=== PATIENT | male | born 1985 | race Caucasian/White ===

== ENCOUNTER 2024-11-15 13:28 | Emergency (ER) | payer SELFPAY ==
[~2024-11-15] VITALS: Ht 172.7 cm; Wt 82.0 kg
[2024-11-15] MEDS ORDERED: SODIUM CHLORIDE 0.9% 1,000 ML IV ONE ×3 (13:45→15:15)
--- NOTE | 2024-11-15 13:45 | ED.PDOC ---
History of Present Illness(SKN HPI Comments 39 y.o male presents to the ED for an evaluation of a possible insect bite x 1 week ago to the left nipple. Patient developed swelling with erythema and states it is painful on palpation. Patient is unsure what bit him, states he did not find anything when he noticed the wound appear. He denies any fever, chills, bleeding or drainage from site. He also denies medical history or allergies,. Time Seen by MD: 13:40 Primary Care Provider: NONE History of Present Illness: Nurses Notes, Medications, Allergies Allergies: Coded Allergies: NO KNOWN ALLERGIES (Unverified , 01/04/12) Home Meds No Active Prescriptions or Reported Meds Information Source: Patient Mode of Arrival: Ambulatory Severity: Moderate Timing: Weeks (1) Duration: Since onset Location: Trunk Mechanism: Insect Wound Type: Abscess Tetanus: Unknown Associated Signs and Symptoms: Redness, Swelling, Pain Past Medical History PAST MEDICAL HISTORY: Denies Surgical History: Denies all surgeries Family History Family History: Unknown Social History Smoker: Cigarettes Alcohol: Occasionally Drugs: Marijuana Lives In: Home Constitutional: denies: chills, diaphoresis, fatigue, fever, malaise, sweats, w eakness, others EENTM: denies: blurred vision, double vision, ear bleeding, ear discharge, ear drainage, ear pain, ear ringing, eye pain, eye redness, hearing loss, mouth pain, mouth swelling, nasal discharge, nose bleeding, nose congestion, nose pain, photophobia, tearing, throat pain, throat swelling, voice changes, others Respiratory: denies: cough, hemoptysis, orthopnea, SOB at rest, shortness of breath, SOB with excertion, stridor, wheezing, others Cardiovascular: denies: chest pain, dizzy spells, diaphoresis, Dyspnea on exertion, edema, irregular heart beat, left arm pain, lightheadedness, palpitations, PND, syncope, others Gastrointestinal: denies: abdomen distended, abdominal pain, blood streaked bowels, constipated, diarrhea, dysphagia, difficulty swallowing, hematemesis, melena, nausea, poor appetite, poor fluid intake, rectal bleeding, rectal pain, vomiting, others Genitourinary: denies: burning, dysuria, flank pain, frequency, hematuria, incontinence, penile discharge, penile sore, pain, testicle pain, testicle swe lling, urgency, others Neurological: denies: dizziness, fainting, headache, left sided numbness, left sided weakness, numbness, paresthesia, pre-existing deficit, right sided numbness, right sided weakness, seizure, speech problems, tingling, tremors, weakness, others Musculoskeletal: denies: back pain, gout, joint pain, joint swelling, muscle pain, muscle stiffness, neck pain, others Integumetry: reports: wounds (left nipple swollen and red ); denies: bruises, change in color, change in hair/nails, dryness, laceration, lesions, lumps, rash, others Allergic/Immunocompromised: denies: Difficulty Healing, Frequent Infections, Hives, Itching, others Hematologic/Lymphatic: denies: anemia, blood clots, easy bleeding, easy bruising, swollen glands, others Endocrine: denies: excessive hunger, excessive sweating, excessive thirst, excessive urination, flushing, intolerance to cold, intolerance to heat, unexplained weight gain, unexplained weight loss, others Psychiatric: denies: anxiety, bipolar disorder, depression, hopeless, panic disorder, schizophrenia, sleepless, suicidal, others All Other Systems: Reviewed and Negative Physical Exam General Appearance: Moderate Distress HEENT: Normal ENT Inspection, Pharynx Normal, TMs Normal Neck: Full Range of Motion, Non-Tender, Normal, Normal Inspection Respiratory: Chest Non-Tender, Lungs Clear, No Accessory Muscle Use, No Respiratory Distress, Normal Breath Sounds Cardiovascular: No Edema, No JVD, No Murmur, No Gallop, Normal Peripheral Pulses, Regular Rate/Rhythm Breast Exam: Deferred Gastrointestinal: No Organomegaly, Non Tender, No Pulsatile Mass, Normal Bowel Sounds, Soft Genitalia: Deferred Pelvic: Deferred Rectal: Deferred Extremities: No calf tenderness, Normal capillary refill, Normal inspection, Normal range of motion, Non-tender, No pedal edema Musculoskeletal : Apperance: Normal Neurologic: Alert, fitness plan coordinator II-XII nml as Tested, No Motor Deficits, Normal Affect, Normal Mood, No Sensory Deficits Cerebellar Function: Normal Reflexes: Normal Skin: Wounds (Left breast) Peripheral Pulses: 3+ Radial (R), 3+ Radial (L) Lymphatic: No Adenopathy Was a procedure done? Was a procedure done?: No Differential Diagnosis (INTG) Differential Diagnosis: Cellulitis, Hematoma, Insect Envenomation, Puncture Wound Differential Diagnosis: Abscess X-Ray, Labs, Meds, VS Patient alert. Came in because of redness of the left breast. Vitals stable. Answering questions. Smoke cigarettes. Counseled patient effects of smoking cigarettes for 15 minutes. Establish intravenous access. Was given fluids. Was given Rocephin. Was given clindamycin. Possibly will need incision drainage from a surgeon. Surgical consultation. Reviewed his history. Explained to the patient. Continue monitoring. Time of 1ST Reevaluation: 13:41 Reevaluation 1ST: Unchanged Patient Education/Counseling: Diagnosis, Treatment, Prognosis Family Education/Counseling: No Family Present Departure 1 Departure Time of Disposition: 13:51 Impression: Primary Impression: Cellulitis Qualified Codes: L03.90 - Cellulitis, unspecified Disposition: 09 ADMITTED INPATIENT Admit to: Med Surg Condition: Guarded e-Prescriptions No Active Prescriptions or Reported Meds Critical Care Note Critical Care Time?: Yes (90 min-critical care time only) Critical care comment: Continue monitor the wound for spreading of the infection Stability Stability form required: No I personally scribed for KUMAR PAGAN MD ([email or web address]) on 11/15/24 at 13:45. Electronically submitted by Lindsay Solis ([facility]). KMUAR PAGAN MD Nov 15, 2024 13:45
[2024-11-15 13:54] VITALS: BP 135/54; PULSE 93; RESP 20; TEMP 98.3; O2SAT 94
[2024-11-15] MEDS: CLINDAMYCIN 600MG IV 50 ML IV ONE (14:23)
[2024-11-15] MEDS: SODIUM CHLORIDE 0.9% 1,000 ML IV ONE (14:23)
[2024-11-15] MEDS: cefTRIAXone 1GM/50ML D5W 50 ML IV ONE (14:23)
[2024-11-15 14:33] LABS: Basophils # (auto) 0.1 10 ^3/uL (0-0.2); Basophils % (auto) 0.4 % (0.0-2.0); Eosinophils # (auto) 0.2 10 ^3/uL (0-0.8); Eosinophils % (auto) 1.2 % (0.0-7.0); Hematocrit 47.9 % (41.0-53.0); Hemoglobin 15.9 g/dL (13.5-17.5); Lymphocytes # (auto) 1.6 10 ^3/uL (0.4-5.4); Lymphocytes % (auto) 10.5 % (10.0-50.0); Mean Corpuscular Hemoglobin 30.9 pg (28.0-32.0); Mean Corpuscular Hgb Conc. 33.2 g/dL (32.0-36.0); Mean Corpuscular Volume 92.8 fL (80.0-100.0); Monocytes # (auto) 1.4 10 ^3/uL (0-1.3); Monocytes % (auto) 9.4 % (0.0-12.0); Neutrophils % (auto) 78.5 % (37.0-80.0); Platelet Count (auto) 279 10^3/uL (140-450); Red Blood Cells 5.16 10^6/uL (4.5-5.90); White Blood Cell 15.3 10^3/uL (4.4-10.8)
[2024-11-15 14:40] LABS: Chloride 104 mmol/L (98-107); Potassium 3.9 mmol/L (3.5-5.1); Sodium 138 mmol/L (136-145)
[2024-11-15 14:41] LABS: Anion Gap 10 (5-15); Carbon Dioxide 24 mmol/L (20-31)
[2024-11-15 14:42] LABS: Calcium 9.6 mg/dL (8.7-10.4)
[2024-11-15 14:46] LABS: BUN/Creatinine Ratio 8.2 (10.0-20.0)
[2024-11-15 14:52] LABS: Blood Urea Nitrogen 8 mg/dL (9-23); Glucose 110 mg/dL (74-106)
[2024-11-15 14:53] LABS: Lactic Acid w/Reflex 2.4 mmol/L (0.4-2.0)
--- NOTE | 2024-11-15 16:09 | DVH ---
Procedure: CT CHEST WITHOUT CONTRAST Reason for study/Clinical History: cellultis Comparison Study: None available at time of dictation. Exam Date: 11/15/2024 03:19 PM TECHNIQUE: Multidetector CT of the chest was performed from the lung apices to the upper abdomen with out the use of intravenous contract. Axial, coronal and sagittal multiplanar reformats were performed . Radiation Dose Information: CT Dose: CTDI volume is 8.69 mGy. Dose-length product is 334.98 mGy*cm The dose indicators for CT are the volume Computed Tomography (CT) Dose Index (CTDIvol) and the Dose Length Product (DLP), and are measured in units of mGy and mGy-cm, respectively. These indicators are not patient dose, but values generated from the CT scanner acquisition factors. The report includes radiation exposure data for exposures received during this examination. FINDINGS: Lower neck: Normal thyroid. Lungs: Several large bullae are present in the left lung. There is slight rightward mediastinal shift . No infiltrates. No suspicious parenchymal mass lesions. Heart/Vascular Structures: Normal heart size. No pericardial effusion. Lymph Nodes: No adenopathy Pleura: No pleural effusion or significant pneumothorax. Musculoskeletal: No acute osseous abnormality. Soft tissues: 3.5 cm soft tissue density mass near the left nipple. There is surrounding soft tissue stranding in the subcutaneous fat. Upper abdomen: Limited portions of the upper abdomen are unremarkable. IMPRESSION: 1. There is a 3.5 cm soft tissue density mass near the left nipple with surrounding inflammatory diaz ges. Whether this represents a neoplasm or inflammatory masses uncertain. There are small left axill glenroy lymph nodes. 2. Bullae in the left chest mainly in the left upper lung zone. Smoking history. No suspicious mass lesions or infiltrates Radiation optimization: All CT scans at this facility use at least one of these dose optimization kaitlin hniques: automated exposure control mA and/or kV adjustment per patient size (includes targeted exam s where dose is matched to clinical indication) or iterative reconstruction.
--- NOTE | 2024-11-15 17:29 | DVHINCON2 ---
Consultation - Surgical Date Seen: Nov 15, 2024 Referring Physician Referring Physician Er Reason for Consultation left chest spider bite History of Present Illness History of Present Illness 39 y.o male presents to the ED for an evaluation of a possible insect bite x 1 week ago to the left nipple. Patient developed swelling with erythema and states it is painful on palpation. Patient is unsure what bit him, states he did not find anything when he noticed the wound appear. He denies any fever, chills, bleeding or drainage from site. Billing as worsened over the last24 hours. And there has been a small amount of discharge from the nipple. Past Medical/Surgical History Past Medical/Surgical History None Family and Social History Family and Social History Daily cannabis use Allergies and medications Allergies: Coded Allergies: NO KNOWN ALLERGIES (Unverified , 01/04/12) Home Meds No Active Prescriptions or Reported Meds Review of systems Review of Systems: HEENT:Normal, CVS:Normal, RESPIRATORY:Normal, GI:Normal, :Normal, MSK:Normal, NEURO:Normal Examination Vital signs Vital Signs Date Time Temp Pulse Resp B/P (MAP) Pulse Ox O2 Delivery O2 Flow Rate FiO2 11/15/24 13:54 98.3 93 20 135/54 (81) 94 98.3 Laboratory Labs Test 11/15/24 14:16 Range/Units White Blood Count 15.3 H 4.4-10.8 10^3/uL Red Blood Count 5.16 4.5-5.90 10^6/uL Hemoglobin 15.9 13.5-17.5 g/dL Hematocrit 47.9 41.0-53.0 % Mean Corpuscular Volume 92.8 80.0-100.0 fL Mean Corpuscular Hemoglobin 30.9 28.0-32.0 pg Mean Corpuscular Hemoglobin Concent 33.2 32.0-36.0 g/dL Red Cell Distribution Width 13.0 11.8-14.3 % Platelet Count 279 140-450 10^3/uL Mean Platelet Volume 8.9 6.9-10.8 fL Neutrophils (%) (Auto) 78.5 37.0-80.0 % Lymphocytes (%) (Auto) 10.5 10.0-50.0 % Monocytes (%) (Auto) 9.4 0.0-12.0 % Eosinophils (%) (Auto) 1.2 0.0-7.0 % Basophils (%) (Auto) 0.4 0.0-2.0 % Neutrophils # (Auto) 12.0 H 1.6-8.6 10 ^3/uL Lymphocytes # (Auto) 1.6 0.4-5.4 10 ^3/uL Monocytes # (Auto) 1.4 H 0-1.3 10 ^3/uL Eosinophils # (Auto) 0.2 0-0.8 10 ^3/uL Basophils # (Auto) 0.1 0-0.2 10 ^3/uL Nucleated Red Blood Cells 0.0 % Sodium Level 138 136-145 mmol/L Potassium Level 3.9 3.5-5.1 mmol/L Chloride Level 104 98-107 mmol/L Carbon Dioxide Level 24 20-31 mmol/L Anion Gap 10 5-15 Blood Urea Nitrogen 8 L 9-23 mg/dL Creatinine 0.98 0.700-1.30 mg/dL Glomerular Filtration Rate Calc 99 >90 mL/min BUN/Creatinine Ratio 8.2 L 10.0-20.0 Serum Glucose 110 H 74-106 mg/dL Lactic Acid Level 2.4 *H 0.4-2.0 mmol/L Calcium Level 9.6 8.7-10.4 mg/dL Examination: GENERAL:Normal, HEENT:Normal, NECK:Normal, CVS:Normal, ABDOMEN:Normal, MSK:Normal, SKIN:Abnormal (Left chest pectoralis and nipple area with redness induration and purulent drainage noted. Tender to the touch.), NEURO:Normal, :Normal Problem List/Assessment/Plan Problems: (1) Cellulitis Assessment and Plan Left chest wall abscess secondary to spider bite. Admit IV antibiotics NPO after midnight I and D of left chest wall abscess in the a.m. Plan discussed with Plan discussed with: Patient Visit Coding Surgery Date of Service if different f: Nov 15, 2024 Billing Provider: LORNA MERLOS Jr., MD Surgery Visit Codes: 90095 - INP CONSULT <80 MIN LORNA MERLOS Jr., MD Nov 15, 2024 17:29
== END 2024-11-15 17:28 | disposition left against medical advice (07) ==
LOC: ER 13:28
DX: N61.0 Mastitis without abscess (principal); F17.210 Nicotine dependence, cigarettes, uncomplicated; F12.90 Cannabis use, unspecified, uncomplicated
CPT/HCPCS: 36415; 71250; 80048; 83605; 85025; 87040; 96365; 96368; 99285; J0696; J3490